=== PATIENT | male | born 1930 | race Caucasian/White ===

== ENCOUNTER 2016-09-29 23:53 | Inpatient (IN) | payer MEDICARE ==
--- NOTE | ~2016-09-29 | CN ---
Consultation Report [facility] [address] [place]. [address] NAME: SCOOBY TRISTAN : 31 STATUS : ADM IN PAT#: [id number] AGE: 85 ADM/REG DATE : 09/30/16 MR#: [id number] REPORT SERV DATE: 10/01/16 DICTATED BY: JOSE MIGUEL CORONADO DATE: 09/30/16 REPORT STATUS : Draft TRANSCRIBED BY: MODL DATE: 09/30/16 CONSULT NOTE DATE OF CONSULTATION: 09/30/2016 REQUESTING PHYSICIAN: Anuj Hanson DO CHIEF COMPLAINT: Shortness of breath in a patient with multiple bilateral pulmonary nodules and bilateral loculated pleural effusions. HISTORY OF PRESENT ILLNESS: Mr. Scooby Tristan is a pleasant 85-year-old white male with a past medical history significant for thyroid cancer, chronic kidney disease, and hypertension, who presents to [facility]'s Emergency Room with complaints of worsening shortness of breath. It should be noted that Mr. Tristan has not been hospitalized recently and is usually in fairly good health given his advanced age and comorbidities. Mr. 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 He has not required supplemental oxygen. He is on nebulized medications. The patient states that he quit smoking over 40 years ago, prior to this time he smoked one pack a day for a period of 15 years. He largely denies symptomatology related to obstructive sleep apnea. He describes his exercise tolerance is becoming progressively worse. He is only able to ambulate around his home before experiencing some degree of shortness of breath. The patient states that approximately two to three days ago, he became more short of breath. He eventually presented to [facility]'s Emergency Room. Upon arrival, he was found to be normotensive and afebrile. He had initial BNP of 1000.7. His creatinine was 2.41. He underwent a chest x-ray which revealed bilateral pleural effusions. He eventually underwent a CT of the chest, which revealed multiple bilateral pulmonary nodules as well as what appeared to be loculated bilateral effusions. For the aforementioned reasons, he has been referred to the Pulmonary Service for further assessment. Currently Mr. Tristan' main pulmonary complaint is shortness of breath. This is worse on exertion and relieved by rest. That being said, he is on room air with appropriate oxygen saturations. He does periodically produce some thick sputum. This is nonpurulent and contains no blood. He denies frequent pneumonias. He denies formal diagnosis of asthma, bronchitis, or emphysema. The patient does have known history of hypertension. He currently denies any murmurs, angina, or palpitations. He has no orthopnea or paroxysmal nocturnal dyspnea. In regard to constitutional symptoms, he currently denies fever, chills, nausea, vomiting, chest pain, abdominal pain, or edema. PAST MEDICAL HISTORY: Consultation Report [address] [place]. [address] NAME: SCOOBY TRISTAN : 31 STATUS : ADM IN [facility]#: [id number] AGE: 85 ADM/REG DATE : 09/30/16 MR#: [id number] REPORT SERV DATE: 10/01/16 DICTATED BY: JOSE MIGUEL CORONADO DATE: 09/30/16 REPORT STATUS : Draft TRANSCRIBED BY: KRYSTEN DATE: 09/30/16 1. Chronic kidney disease. 2. Hypothyroidism. 3. Hypertension. 4. Dyslipidemia. 5. History of thyroid cancer. 6. Achalasia, status post Botox. 7. History of CVA. PAST SURGICAL HISTORY: 1. TURP. 2. Thyroidectomy. FAMILY HISTORY: The patient denies family history of lung disease. There is a family history of uterine cancer and prostate cancer. SOCIAL HISTORY: The patient has a son who is currently at bedside. He denies any known exposures to dust, silica, or asbestos. TOBACCO/ALCOHOL: As previously mentioned, the patient quit smoking approximately 40 years ago, prior to this time he smoked approximately one pack a day for a period of 15 years. He denies any recent alcohol or illicit drug use. MEDICATIONS: Calcitriol 0.25 mcg, finasteride 5 mg, levothyroxine 112 mcg, potassium chloride 20 mEq, simvastatin 10 mg, and tamsulosin 0.4 mg. ALLERGIES: THE PATIENT HAS NO KNOWN DRUG ALLERGIES. REVIEW OF SYSTEMS: Complete review of systems was performed with pertinent positives and negatives contained within the body of the HPI. PHYSICAL EXAMINATION: VITAL SIGNS: Blood pressure is 116/77, heart rate 78, T-max is 98.2, respiratory rate is 17, and SpO2 is 98% on room air. GENERAL: Mr. Scooby Morton is a thin appearing 85-year-old white male who is not currently experiencing any acute distress. SKIN: Skin with appropriate texture and turgor. No rashes, lesions, or ulcers. HEENT: Head: Skull is normocephalic, atraumatic. No masses, lesions, or ulcers. Eyes: Sclerae anicteric. Ears: Hearing grossly intact. Nose: Bilateral nasal patency. Throat: Dentition noted. NECK: Neck is supple. Trachea midline. THORAX/LUNGS: Thorax is symmetric with equal chest rise. Diminished breath sounds in the posterior lung garcia. There are few scattered rhonchi. CARDIOVASCULAR: Regular rate and rhythm. ABDOMEN: Abdomen is soft. Consultation Report [place] [id number] [facility] [place]. [address] NAME: SCOOBY TRISTAN : 31 STATUS : ADM IN PAT#: [id number] AGE: 85 ADM/REG DATE : 09/30/16 MR#: [id number] REPORT SERV DATE: 10/01/16 DICTATED BY: JOSE MIGUEL CORONADO DATE: 09/30/16 REPORT STATUS : Draft TRANSCRIBED BY: MODAlicia DATE: 09/30/16 PERIPHERAL/VASCULAR: No edema. MUSCULOSKELETAL: Full AROM and PROM in all joints. NEUROLOGIC: Cranial nerves 2 through 12 grossly intact. Good muscle bulk and tone bilaterally. PSYCHIATRIC: The patient demonstrates good judgment and insight. ACCESSORY DATA: Reveals white blood cell count of 6300, hemoglobin and hematocrit are 9.3 and 29.3, and platelets are 250. Creatinine is 2.45 and BNP is 100.7. CT of the chest reveals bilateral pulmonary nodules as well as bilateral loculated appearing pleural effusions. IMPRESSION: 1. Multiple bilateral pulmonary nodules. 2. Bilateral loculated pleural effusions. 3. History of thyroid cancer. 4. Possible rheumatoid arthritis. PLAN: 1. At this time, we have discussed potential modalities for obtaining diagnosis. We did discuss a diagnostic and therapeutic thoracentesis as well as bronchoscopy and even CT- guided FNA. The risks, benefits, and alternatives of all 3 were explained at length to both the patient and his son who is currently at bedside. At this time, the patient would like to pursue thoracentesis. I did discuss with him that these appeared to be loculated and the possibility of complications that could ensue. We will move forward with this procedure tomorrow morning. He understands that if this would to be nondiagnostic, he may need to pursue further intervention including bronchoscopy. 2. The patient does have some findings consistent with rheumatoid arthritis. Although unlikely it could be a possible etiology for both his effusions and nodules. We will check a rheumatoid factor moving forward. The aforementioned impression and plan has been discussed with Dr. Mclaughlin as well as Dr. Villafuerte. We thank you for this consult and look forward to participating in the care of Mr. Scooby Tristan. GBS/MODL Jose Miguel Coronado PA-C / [id number] CC: Anuj Hanson DO
--- NOTE | ~2016-09-29 | OP ---
Record Of Operation [facility] [address] [place]. [address] NAME: PAMELA COHEN : 31 STATUS : ADM IN PAT#: [id number] AGE: 85 ADM/REG DATE : 09/30/16 MR#: [id number] REPORT SERV DATE: 10/05/16 DICTATED BY: LIBAN RINALDINAZANIN CARRENOE DATE: 10/05/16 REPORT STATUS : Draft TRANSCRIBED BY: MODL DATE: 10/05/16 DATE OF PROCEDURE: 10/05/2016 BRONCHOSCOPY NAVIGATIONAL AND EBUS NOTE PREOPERATIVE DIAGNOSIS: Multiple lung nodules. POSTOPERATIVE DIAGNOSIS: Possible metastatic thyroid carcinoma. PROCEDURE: Bronchoscopy with airway inspection and anesthesia/navigational bronchoscopy with transbronchial lung biopsies, into the posterior segment of the right lower lobe in micro and macro BAL/transbronchial needle aspirates with sampling of what appeared to be a 12-hour lymph node and a clear 10-hour lymph node. We were unable to find the left lower lobe lesion on radial EBUS and no sampling was performed. CONTRAINDICATIONS: None. CONSENT: The risks, benefits, alternatives, and evaluations were discussed with the patient and son. Possible complications reviewed to include air leak around the lung, bleeding, infection, low oxygen level, and even potentially . The patient agreed to procedure with consent signed and witnessed on the front of the chart. PREOPERATIVE LABS: Platelet count was 248,000, INR is 1.1, PTT was 38.8. SYSTEMS TEST ENGINEER: Nazanin Goncalves M.D. METHOD: The patient was taken to the bronchoscopy suite at [facility] in the usual manner. Anesthesiology was consulted to provide airway management and sedation. This was provided via an endotracheal tube. Once the tube was secured and the patient was sedated, the bronchoscope was advanced through the endotracheal tube without difficulty. Tube sat approximately 3.5 cm proximal to the nathaniel. There was thick white mucus on the left lower lobe and upper lobe, which both removed with suction. There was anatomic narrowing of the proximal airways to the left lower lobe; however, all were patent. There was anatomic variant of a 3-segment left upper lobe. A total of 18 mL of 2% lidocaine solution was used throughout this portion of the procedure to provide airway anesthesia. Once airway inspection had occurred, navigational planning had already been performed. Mapping was then performed endobronchially. Using navigational guidance, the lesion appeared to be in the posterior segment of the right lower lobe. On best airway guidance, no lesion was found on radial EBUS. Using the airway proximity and probing with the radial EBUS, the lesion was found. This was sampled 9 times with transbronchial lung biopsies. Twice during the biopsies, the procedure was put on hold while the radial EBUS was readvanced and appeared to be on the lesion. All biopsies were performed in fluoroscopic guidance. At the conclusion of the biopsies to the right lower lobe, a micro BAL was performed through the working port. I felt that adequate sampling had been performed. On touch prep, no clear malignant cells were found; however, after mary examination, there was a very mature cell seen and need to be reviewed on biopsy. We then performed navigation to the left lower lobe lesion. The [facility] Record Of [facility] [address] [facility] [place]. [address] NAME: PAMELA COHEN : 31 STATUS : ADM IN PAT#: [id number] AGE: 85 ADM/REG DATE : 09/30/16 MR#: [id number] REPORT SERV DATE: 10/05/16 DICTATED BY: NAZANIN GONCALVES IV DATE: 10/05/16 REPORT STATUS : Draft TRANSCRIBED BY: KRYSTEN DATE: 10/05/16 and working port were navigated to the lesion. However, on any airway, both the posterior segment of the lateral segment and both subsegments in the posterior segment of the left lower lobe did not appear to be on the lesion using radial EBUS. It was felt that it was unsafe to attempt biopsies in this region since on several that had potential malignant- appearing radial EBUS findings, there was noted to be close proximity to the pleura. At this time, the convex EBUS scope was advanced down the right mainstem into the right lower lobe bronchus. A soft-tissue mass/node could be observed and was sampled twice for slides and three times for cell block. This demonstrated blood and mature epithelioid cells with no clear lymph node. At this time, the scope was pulled proximally and a 2-cm 10-hour lymph node was noted. This was sampled three times for slide, three for cell block. This demonstrated epithelioid cells, which would be consistent with his previous thyroid cancer in appearance. Final pathology is pending. It was felt that adequate transbronchial needle aspirate samplings were performed in both the 12-hour and 10-hour lymph nodes. Review with the EBUS scope demonstrated no significant level 7- or 4-hour lymph nodes or 11-hour lymph nodes. At this time, it was felt that adequate sampling had been performed. The EBUS scope was then removed and the bronchoscope was readvanced. A macro BAL was performed in the posterior segment of the right lower lobe sent for culture as well as for cytology. Estimated blood loss for the procedure was 10 mL. There was no active bleeding at the conclusion of the procedure. Before fluoroscopy was removed, there was no evidence for pneumothorax looking at the right lung. The patient tolerated the procedure well, was sent to recovery. I will notify the family of the preliminary findings. LAURA/KRYSTEN Nazanin Goncalves IV, M.D. / [id number] CC: Anuj Hanson DO
--- NOTE | ~2016-09-29 | OP ---
Record Of Operation [facility] [address] [place]. [address] NAME: PAMELA COHEN : 31 STATUS : ADM IN PAT#: [id number] AGE: 85 ADM/REG DATE : 09/30/16 MR#: [id number] REPORT SERV DATE: 10/01/16 DICTATED BY: JOSE MIGUEL CORONADO DATE: 10/01/16 REPORT STATUS : Draft TRANSCRIBED BY: MODL DATE: 10/01/16 DATE OF PROCEDURE: 10/01/2016 TIME: 1400. PROCEDURE: Ultrasound-guided right-sided thoracentesis. INDICATION: Moderate right-sided pleural effusion. PROCEDURE TESTER WASTE DISPOSAL LEAKAGE: Patrice Coronado PA-C. CONSENT: Consent was obtained from the patient prior to the procedure. Diagnostic and therapeutic indications for thoracentesis were discussed as well as risks including life- threatening bleeding, pneumothorax, and even the possible necessity of chest tube placement. Benefits and alternatives were explained at length. Prior to the procedure, imaging studies were reviewed with Dr. Villafuerte who agreed with the indication to proceed with thoracentesis. Dr. Villafuerte was present in the room. PROCEDURE SUMMARY: A time out was performed verifying correct patient, procedure, site, and positioning. The patient's right chest was prepped and draped in a sterile manner using chlorhexidine scrub after the appropriate level was percussed and confirmed by ultrasound. U/S images were obtained and placed within the chart. 2% lidocaine with epinephrine was then used to anesthetize the region. A finder needle was then used to aspirate dark red serosanguineous pleural fluid. A 10-blade scalpel was then used to make a small incision. The thoracentesis catheter was then threaded into the pleural space without difficulty. The patient had 400 mL of dark red serosanguineous fluid removed. Repeat imaging suggested lung entrapment as well as some degree of septation and as such no further fluid was aspirated. No immediate complications were noted during the procedure. A post-procedure chest x-ray is pending at the time of this dictation. The fluid will be sent for several studies. ESTIMATED BLOOD LOSS: Minimal. GBS/MODL Jose Miguel Coronado PA-C / [id number] CC: Anuj Hanson DO
--- NOTE | ~2016-09-29 | HP ---
History And Physical [place] [address] [facility] [place]. [address] NAME: PAMELA COHEN : 31 STATUS : ADM IN [facility]#: [id number] AGE: 85 ADM/REG DATE : 09/30/16 MR#: [id number] REPORT SERV DATE: 09/30/16 DICTATED BY: YOAN SUTTON DATE: 09/30/16 REPORT STATUS : Draft TRANSCRIBED BY: MODL DATE: 09/30/16 DATE OF ADMISSION: 09/29/2016 POINT OF ENTRY: [facility] Emergency Department PRIMARY UROLOGIST: Dr. Tapia. CHIEF COMPLAINT: Shortness of breath and dyspnea on exertion. HISTORY OF PRESENT ILLNESS: Mr. Cohen is an 85-year-old gentleman with a history of chronic kidney stage 3, baseline creatinine approximately 1.6 to 1.9, BPH, hypothyroidism, hypertension, hyperlipidemia, as well as remote history of thyroid cancer who presents to the emergency department today with a two-day history of shortness of breath and dyspnea on exertion. The patient states that his symptoms began about two days ago of shortness of breath, primarily dyspnea on exertion, but he denies any associated fevers, night sweats, chills, cough, sputum production, wheezing, chest pain, palpitations, or lower extremity edema. The patient only recently started to develop a cough occasionally productive of clear to whitish colored sputum in the last few hours while being evaluated in the emergency department. He denies any history of lung or cardiac disease. Does have a history of chronic kidney stage 3. Denies any recent troubles with urinary retention. States he has had good appetite as well as a good oral intake recently. Initial evaluation in the emergency department for a chest x-ray concerning for bilateral pleural effusion as well as some evidence of some mild intravascular volume overload. Remainder of workup showed a BNP mildly elevated at 100.7, troponin mildly elevated at 0.09, creatinine is elevated above his baseline of 2.41. The patient was given 20 mg of IV Lasix and admitted to the Hospitalist Service. REVIEW OF SYSTEMS: Comprehensive review of systems, otherwise negative unless listed in history of present illness. PREVIOUS MEDICAL HISTORY: 1. Chronic kidney stage 3. Baseline creatinine 1.6 to 1.9. 2. BPH with history of urinary retention. 3. Postsurgical hypothyroidism. 4. Thyroid cancer, status post thyroidectomy. 5. History of CVA. 6. Achalasia, status post Botox and PEG tube insertion, now resolved. 7. Hypertension. 8. Hyperlipidemia. SURGICAL HISTORY: History And Physical [address] [address] NAME: PAMELA COHEN : 31 STATUS : ADM IN PAT#: [id number] AGE: 85 ADM/REG DATE : 09/30/16 MR#: [id number] REPORT SERV DATE: 09/30/16 DICTATED BY: YOAN SUTTON DATE: 09/30/16 REPORT STATUS : Draft TRANSCRIBED BY: KRYSTEN DATE: 09/30/16 1. TURP. 2. Thyroidectomy. ALLERGIES: NO KNOWN DRUG ALLERGIES. HOME MEDICATIONS: Pending at the time of dictation. SOCIAL HISTORY: Denies any tobacco, alcohol, or illicits. FAMILY MEDICAL HISTORY: Mother with urine cancer and diabetes. Father's history is unknown. Siblings with diabetes, prostate cancer, and uterine cancer. LABS AND IMAGIN. White count is 8.2, hemoglobin is 9.2, hematocrit is 29.3, and platelet count 242. 2. Sodium is 141, potassium 4.4, chloride 104, carbon dioxide 33, BUN 31, creatinine 2.41, glucose was 89, calcium is 9.6. Protein is 7.8, albumin is 2.9, bilirubin is 0.7, ALT is 9, AST 14, alkaline phosphatase is 53. 3. BNP is elevated at 100.7. Troponin 0.09. 4. Occult stool is negative. EKG per my review shows normal sinus rhythm with occasional PACs and LVH type changes. No evidence of any acute ischemia or infarction. Chest x-ray per my review shows bilateral moderate-sized pleural effusion as well as some mild intravascular volume overload and mild cardiomegaly. Also, appears to be right lower lobe infiltrate concerning for compressive atelectasis versus consolidation. PHYSICAL EXAMINATION: ABDOMEN: Soft, nontender, nondistended. Good bowel sounds. No rebound, guarding, or rigidity. EXTREMITIES: Warm and perfused. No cyanosis, clubbing, or edema. SKIN: Warm and dry. PSYCH: Affect is appropriate. NEURO: Alert and oriented x3. Cranial nerves II through XII grossly intact. Speech is normal. Gait not assessed. ASSESSMENT AND PLAN: Mr. Cohen is an 85-year-old gentleman, who presents with a few day history of shortness of breath and dyspnea on exertion. Now, starting to have cough with sputum production and found to have evidence of bilateral pleural effusions as well as a possible right lower lobe pneumonia. PROBLEM LIST: 1. Shortness of breath and dyspnea on exertion. 2. Bilateral pleural effusions. 3. Acute kidney injury on chronic kidney disease stage 3. 4. Right lower lobe infiltrate concerning for pneumonia. 5. Elevated troponin level. History And Physical [address] [address] NAME: PAMELA COHEN : 31 STATUS : ADM IN PAT#: [id number] AGE: 85 ADM/REG DATE : 09/30/16 MR#: [id number] REPORT SERV DATE: 09/30/16 DICTATED BY: YOAN SUTTON DATE: 09/30/16 REPORT STATUS : Draft TRANSCRIBED BY: KRYSTEN DATE: 09/30/16 PLAN: 1. Shortness of breath, likely secondary to the patient's pleural effusions as well as concern for right lower lobe infiltrate concerning for pneumonia. We will attempt to diurese gently as well as treat with antibiotics and observe for improvement. BNP is only mildly elevated. We will check echocardiogram given concern for possible chronic diastolic congestive heart failure, given history of hypertension, LVH changes on EKG as well as chronic kidney disease stage 3. 2. Bilateral pleural effusions. Unclear etiology at this time. We will attempt gentle diuresis checking echocardiogram there also with a right lower lobe infiltrate concerning for possible pneumonia which we will treat. 3. Acute kidney injury and heart disease stage 3. Unclear etiology at this time. However, given his bilateral pleural effusions, there is concern for possible cardiorenal syndrome. We will gently diurese, observe for improvement. In the meantime, checking urinalysis urine lytes as well as renal ultrasound to assist. 4. Elevated troponin level. The patient denies any chest pain. EKG is nonischemic. Continue to trend these cardiac enzymes likely secondary to his known renal disease. 5. Right lower lobe infiltrate. This is concerning for pneumonia versus possible compressive atelectasis. We will empirically treat with antibiotics given the patient now has a cough as well as sputum production checking CT scan of the chest. 6. DVT prophylaxis. Heparin subcu. CODE STATUS: The patient wished to be full code. JCB/MODL Yoan Sutton MD / [id number] CC: MD Anjel Jarquin M.D.
--- NOTE | ~2016-09-29 | DS ---
Discharge Summary [place] [id number] [place]. [address] NAME: PAMELA COHEN : 31 STATUS : ADM IN [facility]#: [id number] AGE: 85 ADM/REG DATE : 09/30/16 MR#: [id number] REPORT SERV DATE: 10/06/16 DICTATED BY: GOMEZ MARTELL DATE: 10/06/16 REPORT STATUS : Draft TRANSCRIBED BY: MODL DATE: 10/06/16 ADMISSION DATE: 09/30/2016 DISCHARGE DATE: 10/06/2016 ADDENDUM: DISCHARGE DIAGNOSES: Probable metastatic thyroid cancer, bilateral loculated effusion, urinary tract infection, finished treatment, encephalopathy improved, atrial fibrillation diltiazem CD, likely aspirin and Plavix as an outpatient, benign prostatic hyperplasia, acute kidney injury, clinical chronic obstructive pulmonary disease, hypothyroidism. I am going to add aspirin and Plavix discharge JUL. DICTATED BY: DO TATUM Hernandez/KRYSTEN Gomez Martell DO / [id number] CC: Gomez Martell DO
--- NOTE | ~2016-09-29 | DS ---
Discharge Summary [facility] [address] [place]. [address] NAME: PAMELA COHEN : 32 STATUS : ADM IN PAT#: [id number] AGE: 85 ADM/REG DATE : 09/30/16 MR#: [id number] REPORT SERV DATE: 10/07/16 DICTATED BY: GOMZE MARTELL DATE: 10/06/16 REPORT STATUS : Draft TRANSCRIBED BY: MODL DATE: 10/06/16 ADMISSION DATE: 09/30/2016 DISCHARGE DATE: 10/06/2016 HOSPITAL COURSE: This is an 85-year-old unfortunate male. 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 The patient came in with unfortunate shortness of breath, had mild ANDREA and CKD. We did a CT of his chest, unfortunately had showed bilateral pulmonary nodules highly suspicious for metastasis, 2.8 cm left lower lobe, right hilar 2.2 cm, loculation, pleural effusion, has cytology with bloody exudate. With cytology was negative, as a result we did a navigational bronchoscopy at that time to have possible metastatic thyroid carcinoma. Dr. San was consulted, for which Dr. San had stated with [facility] that suppression of Synthroid may slow his tumor growth, he is unlikely to tolerate what would likely control the disease, the best which is an oral tyrosine kinase inhibitor. As a result, we would like to see the patient in the office in two weeks. If performance score is better, might consider adding , but would suspect he will need hospice care if no stronger. The patient is DNR/DNI at this time. The patient will be going to a facility called [facility] today. Follow up with his Oncolgy in two weeks. Follow up with PCP in 2 weeks. Reduce his Synthroid to 75 from 112, since spirometry every 120 times an hour, will need to be on oxygen as an outpatient, do walking oxygen test as an outpatient when going from facility to home. At that time, follow up with Nephrology in four to eight weeks as well. DISCHARGE MEDICATIONS: Aspirin 81 p.o. daily, calcitriol 0.25 mcg p.o. daily, calcium carbonate, diltiazem CD 120 p.o. daily, finasteride 5 p.o. daily as well as having simvastatin 10 p.o. daily, Flomax 0.4 p.o. daily as well as capsule p.o. b.i.d. will not be given, KCl 20 mEq p.o. daily, Synthroid 75 mcg p.o. daily, Spiriva, Dulera, albuterol p.r.n. CONSULTANTS: [facility], Pulmonary. PROCEDURES: Going to be thoracentesis as well as bronchoscopy, EBUS. DICTATED BY: Gomez Martell DO WST/KRYSTEN Gomez Martell DO Discharge Summary [address] [address] NAME: PAMELA COHEN : 32 STATUS : ADM IN [facility]#: [id number] AGE: 85 ADM/REG DATE : 09/30/16 MR#: [id number] REPORT SERV DATE: 10/07/16 DICTATED BY: GOMEZ MARTELL DATE: 10/06/16 REPORT STATUS : Draft TRANSCRIBED BY: MODL DATE: 10/06/16 / [id number] CC: Gomez Martell DO
--- NOTE | ~2016-09-29 | PUL ---
[facility] [address] [facility]. [address] NAME: PAMELA COHEN : 32 STATUS : DIS IN PAT#: [id number] AGE: 85 ADM/REG DATE : 09/30/16 MR#: [id number] REPORT SERV DATE: 10/08/16 DICTATED BY: NAZANIN GONCALVES IV DATE: 10/07/16 REPORT STATUS : Draft TRANSCRIBED BY: MODL DATE: 10/07/16 PULMONARY FUNCTION TEST OVERNIGHT OXIMETRY FINDINGS: Study is performed on room air. Six hours and 19 minutes of data available for review. The mean oxygen saturation was 92.1%. Lowest scored saturation was 81%. The patient spent 21 minutes with oxygen saturations less than 88%. There were periods of oxygen saturation variation of sawtooth pattern, though rarely did these meet 4% variance and rarely were they clustered. There was a period of loss of data collection about midway through the study. The most consistent period of hypoxemia occurred just at the end of the study with adequate saturations throughout the majority of the study. IMPRESSION: Significant nocturnal hypoxemia on room air as described above. The patient would meet criteria for supplemental oxygen, which should be provided at 2 L/minute. There is no clear pattern consistent with obstructive sleep apnea. LAURA/KRYSTNE Nazanin Goncalves IV, M.D. / [id number] CC: Anuj Hanson DO
--- NOTE | ~2016-09-29 | DS ---
Discharge Summary [facility] [address] [place]. [address] NAME: PAMELA COHEN : 32 STATUS : DIS IN PAT#: [id number] AGE: 85 ADM/REG DATE : 09/30/16 MR#: [id number] REPORT SERV DATE: 10/08/16 DICTATED BY: ANTHONY FRIEDMAN DATE: 10/07/16 REPORT STATUS : Draft TRANSCRIBED BY: MODL DATE: 10/07/16 ADMISSION DATE: 09/30/2016 DISCHARGE DATE: 10/07/2016 UROLOGIST: Anjel Tapia M.D. CONSULTING PHYSICIANS: Dr. Goncalves and Dr. Mclaughlin. Dr. Grayson Barnett for Oncology. FINAL DIAGNOSES: 1. Metastatic papillary thyroid cancer, stage IV, status post right lower lobe pneumonia. 2. Loculated pleural effusion. 3. Chronic obstructive pulmonary disease. 4. Acute kidney injury on chronic kidney disease 3. 5. Hypertension. 6. History of cerebrovascular accident. 7. Atrial fibrillation. 8. History of achalasia with PEG. 9. Hypophosphatemia. 10.Benign prostatic hyperplasia with urinary retention. 11.Hypothyroidism, status post thyroidectomy for cancer. 12.Status post encephalopathy. HOSPITAL COURSE: Please refer to the H and P done by Dr. Nieto dated on 09/30/2016 and the interim discharge summary done by Dr. Anuj Goldman on 10/06/2016 and 10/07/2016. Since I took care of this patient, the patient is formally diagnosed with a metastatic papillary cancer and he was told about this. He was given the option of going to hospice or going to be taking the new medication for it, but with his condition, he probably would not be able to tolerate that. The patient was initially thought that he would go to a SNF facility to get stronger so that they would be able to think about getting that new medications for the cancer, but they changed their mind, they would rather go home. PT recommended some rolling walker, home health, home PT, and bedside commode. The patient got clearance from both Oncology and Pulmonary to go home. He will then be followed up by his PCP, Blake Hughes, and then follow up with Dr. Grayson Barnett in two weeks and Dr. Mclaughlin in two to three weeks. The patient will be on the following medications. Aspirin 81 mg a day, Rocaltrol 0.25 mcg a day, Caltrate 1000 mg twice a day, diltiazem CD 180 mg at bedtime, Proscar 5 mg at bedtime, Synthroid down to 75 mcg a day, potassium 20 mEq a day, Zocor 10 mg at bedtime, Flomax 0.4 mg a day, albuterol nebules four times a day as needed. This has been explained to the patient in front of the son. TIME SPENT: 35 minutes. DICTATED BY: Anthony Friedman M.D. Discharge Summary [address] [address] NAME: PAMELA COHEN : 32 STATUS : DIS IN PAT#: [id number] AGE: 85 ADM/REG DATE : 09/30/16 MR#: [id number] REPORT SERV DATE: 10/08/16 DICTATED BY: ANTHONY FRIEDMAN DATE: 10/07/16 REPORT STATUS : Draft TRANSCRIBED BY: KRYSTEN DATE: 10/07/16 MICHAEL/KRYSTEN Anthony Friedman M.D. / [id number] CC: DO Blake Hernandez MD
[2016-09-29 22:24] LABS: BASOPHILS 0.1 %; BASOPHILS ABSOLUTE 0.01 10/3/uL (0.0-0.16); EOSINOPHILS 0.9 %; EOSINOPHILS ABSOLUTE 0.07 10/3/uL (0.0-0.53); ER CBC TAT 0 Hrs 09 Mins; HEMOGLOBIN 9.2 g/dL (13.6-17.8); IMMATURE GRANULOCYTES 0.1 %; IMMATURE GRANULOCYTES ABSOLUTE 0.01 10/3/uL (0.0-0.11); LYMPHOCYTES 9.5 %; LYMPHOCYTES ABSOLUTE 0.78 10/3/uL (0.67-4.30); MEAN CORPUS HGB CONC 31.4 g/dL (32.0-36.0); MEAN CORPUSCULAR HEMOGLOB 26.7 pg (26.0-34.0); MEAN PLATELET VOLUME 9.1 fL (9.2-13.0); MONOCYTES ABSOLUTE 0.41 10/3/uL (0.21-1.20); NEUTROPHILS 84.4 %; NEUTROPHILS ABSOLUTE 6.95 10/3/uL (2.02-8.40); PLATELET COUNT 242 10/3/uL (150-400); RBC DISTRIBUTION WIDTH 15.7 % (12.0-16.0); RED CELL COUNT 3.45 10/6/uL (4.7-6.1); WHITE BLOOD CELLS 8.2 10/3/uL (4.5-10.5)
[2016-09-29 22:25] LABS: HEMATOCRIT 29.3 % (40.0-51.0); MANUAL DIFF NO %; MEAN CORPUSCULAR VOLUME 84.9 fL (80-100)
[2016-09-29 22:42] LABS: A/G RATIO 0.6 (0.7-1.9); ALBUMIN 2.9 G/DL (3.5-5.0); ALKALINE PHOSPHATASE 53 U/L (45-117); BUN (BLOOD UREA NITROGEN) 31 MG/DL (6-23); CALCIUM, SERUM 9.6 MG/DL (8.5-10.4); CHLORIDE, SERUM 104 MMOL/L (96-112); CO2 (CARBON DIOXIDE) 33 MMOL/L (24-34); GFR AFRICAN AMERICAN 28 ML/MIN (>=60); GFR NON AFRICAN AMERICAN 24 ML/MIN (>=60); GLOBULIN 4.9 G/DL (2.5-4.1); GLUCOSE, SERUM 89 MG/DL (60-99); POTASSIUM, SERUM 4.4 MMOL/L (3.5-5.3); SGOT(AST) 14 U/L (5-40); SGPT(ALT) 9 U/L (5-65); SODIUM, SERUM 141 MMOL/L (135-148); TOTAL BILIRUBIN 0.7 MG/DL (0-1.2); TOTAL PROTEIN 7.8 G/DL (6.0-8.5)
[2016-09-29 22:43] LABS: CREATININE 2.41 MG/DL (0.70-1.30)
[~2016-09-29 23:53] MED LIST: BACDS PO; CALCITRIOL0.25 MCG OR; CALCIUM PO; CARDURA8 MG PO; CHLORTHALID25 MG OR; DITRO5 PO; FLOMAX4 PO; KLOR-CON 1010 MEQ PO; LEVOTHROID137 MCG PO; LEVOTHYROXIN100 MCG PO; LEVOTHYROXIN125 MCG PO; MAG OXIDE250 MG PO; NORV10 PO; OS500+D PO; PROSCAR5 PO; PYR200 PO; ROCALTROL0.25 MCG OR; VIB100 PO; ZOCOR10 PO
[2016-09-30 00:27] LABS: TROPONIN I 0.09 NG/ML (<0.05)
[2016-09-30] MEDS ORDERED: ZOCOR10 PO (00:42)
[2016-09-30] MEDS ORDERED: KLOR-CON M2020 MEQ PO (00:42)
[2016-09-30] MEDS ORDERED: OS500+D PO (00:43)
[2016-09-30] MEDS ORDERED: FLOMAX4 PO (00:43)
[2016-09-30] MEDS ORDERED: ROCALTROL0.25 MCG PO (00:43)
[2016-09-30] MEDS ORDERED: SYN112 PO (00:43)
[2016-09-30] MEDS ORDERED: PROSCAR5 PO (00:43)
[2016-09-30 05:41] LABS: BASOPHILS 0.2 %; BASOPHILS ABSOLUTE 0.01 10/3/uL (0.0-0.16); EOSINOPHILS 1.6 %; HEMATOCRIT 29.3 % (40.0-51.0); HEMOGLOBIN 9.3 g/dL (13.6-17.8); IMMATURE GRANULOCYTES 0.2 %; IMMATURE GRANULOCYTES ABSOLUTE 0.01 10/3/uL (0.0-0.11); LYMPHOCYTES 14.6 %; LYMPHOCYTES ABSOLUTE 0.92 10/3/uL (0.67-4.30); MEAN CORPUS HGB CONC 31.7 g/dL (32.0-36.0); MEAN CORPUSCULAR VOLUME 84.9 fL (80-100); MEAN PLATELET VOLUME 9.5 fL (9.2-13.0); MONOCYTES 7.2 %; MONOCYTES ABSOLUTE 0.45 10/3/uL (0.21-1.20); NEUTROPHILS 76.2 %; NEUTROPHILS ABSOLUTE 4.79 10/3/uL (2.02-8.40); PLATELET COUNT 250 10/3/uL (150-400); RBC DISTRIBUTION WIDTH 15.6 % (12.0-16.0); RED CELL COUNT 3.45 10/6/uL (4.7-6.1); WHITE BLOOD CELLS 6.3 10/3/uL (4.5-10.5)
[2016-09-30 05:42] LABS: MANUAL DIFF NO %
[2016-09-30 06:10] LABS: ALBUMIN 2.8 G/DL (3.5-5.0); BUN (BLOOD UREA NITROGEN) 33 MG/DL (6-23); CALCIUM, SERUM 9.9 MG/DL (8.5-10.4); CHLORIDE, SERUM 101 MMOL/L (96-112); CK-MB 1.3 NG/ML; CO2 (CARBON DIOXIDE) 30 MMOL/L (24-34); CPK 73 U/L (0-200); CREATININE 2.45 MG/DL (0.70-1.30); FREE T4 1.21 NG/DL (0.76-1.46); GFR AFRICAN AMERICAN 27 ML/MIN (>=60); GFR NON AFRICAN AMERICAN 23 ML/MIN (>=60); GLUCOSE, SERUM 85 MG/DL (60-99); PHOSPHORUS, SERUM 2.5 MG/DL (2.5-4.5); POTASSIUM, SERUM 3.8 MMOL/L (3.5-5.3); SODIUM, SERUM 139 MMOL/L (135-148)
[2016-09-30 06:56] LABS: ASCORBIC ACID (UR NOT ORDER) NEG (NEG); BILIRUBIN, URINE NEGATIVE (NEG); KETONE, URINE NEGATIVE (NEG); LEUKOCYTE ESTERASE(NOT OR LARGE (NEG); WBC (NOT ORDERED) (RFLEX) 79 (0-5)
[2016-09-30 07:22] LABS: CREATININE, URINE 40.4 MG/DL
[2016-09-30 11:25] LABS: CPK 84 U/L (0-200)
[2016-09-30 11:26] LABS: CK-MB 1.3 NG/ML; TROPONIN I 0.09 NG/ML (<0.05)
[2016-09-30 17:11] LABS: RHEUMATOID FACTOR QUANT 19 IU/ML (0-15)
[2016-09-30 18:10] LABS: TOTAL PROTEIN 7.5 G/DL (6.0-8.5)
[2016-10-01 06:16] LABS: BASOPHILS 0.2 %; BASOPHILS ABSOLUTE 0.01 10/3/uL (0.0-0.16); EOSINOPHILS 1.6 %; HEMATOCRIT 27.1 % (40.0-51.0); HEMOGLOBIN 8.7 g/dL (13.6-17.8); IMMATURE GRANULOCYTES 0.2 %; IMMATURE GRANULOCYTES ABSOLUTE 0.01 10/3/uL (0.0-0.11); LYMPHOCYTES 13.2 %; LYMPHOCYTES ABSOLUTE 0.82 10/3/uL (0.67-4.30); MEAN CORPUS HGB CONC 32.1 g/dL (32.0-36.0); MEAN CORPUSCULAR HEMOGLOB 26.8 pg (26.0-34.0); MEAN CORPUSCULAR VOLUME 83.4 fL (80-100); MEAN PLATELET VOLUME 9.4 fL (9.2-13.0); MONOCYTES 4.3 %; MONOCYTES ABSOLUTE 0.27 10/3/uL (0.21-1.20); NEUTROPHILS 80.5 %; NEUTROPHILS ABSOLUTE 5.02 10/3/uL (2.02-8.40); PLATELET COUNT 244 10/3/uL (150-400); RBC DISTRIBUTION WIDTH 15.6 % (12.0-16.0); RED CELL COUNT 3.25 10/6/uL (4.7-6.1); WHITE BLOOD CELLS 6.2 10/3/uL (4.5-10.5)
[2016-10-01 06:18] LABS: MANUAL DIFF NO %
[2016-10-01 06:22] LABS: INTERNATIONAL NORMAL RATI 1.1 UNITS (-); PROTIME (NOT ORD) 14.5 SEC (12.0-14.5)
[2016-10-01 06:23] LABS: PARTIAL THROMBO TIME 39.3 SEC (22.5-37.2)
[2016-10-01 06:42] LABS: CALCIUM, SERUM 10.1 MG/DL (8.5-10.4); CHLORIDE, SERUM 100 MMOL/L (96-112); CO2 (CARBON DIOXIDE) 33 MMOL/L (24-34); CREATININE 2.85 MG/DL (0.70-1.30); GFR AFRICAN AMERICAN 22 ML/MIN (>=60); GFR NON AFRICAN AMERICAN 19 ML/MIN (>=60); GLUCOSE, SERUM 94 MG/DL (60-99); PHOSPHORUS, SERUM 2.9 MG/DL (2.5-4.5); POTASSIUM, SERUM 3.7 MMOL/L (3.5-5.3); SODIUM, SERUM 140 MMOL/L (135-148)
[2016-10-01 06:43] LABS: BUN (BLOOD UREA NITROGEN) 44 MG/DL (6-23)
[2016-10-01 17:23] LABS: GLUCOSE BODY FL (NOT ORD) 6 MG/DL; PROTEIN BODY FLUID 4.9 G/DL
[2016-10-01 17:24] LABS: LDH BODY FLUID (NOT ORD) 6 U/L
[2016-10-01 17:51] LABS: BF TOTAL CELL CT (NOT ORD 16832 /MM3; BODY FLUID RBC (NOT ORD) 217123 /MM3
[2016-10-01 18:19] LABS: BD FL LYMPH (NOT ORD) 35 %; BD FL SOURCE (NOT ORD) PLEURAL; BF BASO (NOT OF) 0 %; BF LARGE MONONUCLEAR 33 %; BODY FLUID EOS (NOT ORD) 0 %; BODY FLUID SEG (NOT ORD) 32 %
[2016-10-02 07:36] LABS: BASOPHILS 0.2 %; BASOPHILS ABSOLUTE 0.01 10/3/uL (0.0-0.16); EOSINOPHILS 3.4 %; EOSINOPHILS ABSOLUTE 0.18 10/3/uL (0.0-0.53); HEMOGLOBIN 8.5 g/dL (13.6-17.8); IMMATURE GRANULOCYTES 0.2 %; IMMATURE GRANULOCYTES ABSOLUTE 0.01 10/3/uL (0.0-0.11); LYMPHOCYTES 12.3 %; LYMPHOCYTES ABSOLUTE 0.64 10/3/uL (0.67-4.30); MEAN CORPUS HGB CONC 32.7 g/dL (32.0-36.0); MEAN CORPUSCULAR HEMOGLOB 27.4 pg (26.0-34.0); MEAN CORPUSCULAR VOLUME 83.9 fL (80-100); MEAN PLATELET VOLUME 9.7 fL (9.2-13.0); MONOCYTES 6.3 %; MONOCYTES ABSOLUTE 0.33 10/3/uL (0.21-1.20); NEUTROPHILS 77.6 %; NEUTROPHILS ABSOLUTE 4.05 10/3/uL (2.02-8.40); PLATELET COUNT 248 10/3/uL (150-400); RBC DISTRIBUTION WIDTH 15.6 % (12.0-16.0); WHITE BLOOD CELLS 5.2 10/3/uL (4.5-10.5)
[2016-10-02 07:39] LABS: MANUAL DIFF NO %
[2016-10-02 07:50] LABS: BUN (BLOOD UREA NITROGEN) 43 MG/DL (6-23); CHLORIDE, SERUM 102 MMOL/L (96-112); CO2 (CARBON DIOXIDE) 32 MMOL/L (24-34); GFR AFRICAN AMERICAN 25 ML/MIN (>=60); GFR NON AFRICAN AMERICAN 22 ML/MIN (>=60); GLUCOSE, SERUM 74 MG/DL (60-99); POTASSIUM, SERUM 3.8 MMOL/L (3.5-5.3); SODIUM, SERUM 142 MMOL/L (135-148)
[2016-10-03 07:27] LABS: BASOPHILS 0.3 %; BASOPHILS ABSOLUTE 0.01 10/3/uL (0.0-0.16); EOSINOPHILS 2.3 %; EOSINOPHILS ABSOLUTE 0.09 10/3/uL (0.0-0.53); HEMATOCRIT 25.1 % (40.0-51.0); HEMOGLOBIN 8.1 g/dL (13.6-17.8); LYMPHOCYTES 14.5 %; LYMPHOCYTES ABSOLUTE 0.56 10/3/uL (0.67-4.30); MEAN CORPUS HGB CONC 32.3 g/dL (32.0-36.0); MEAN CORPUSCULAR HEMOGLOB 26.8 pg (26.0-34.0); MEAN CORPUSCULAR VOLUME 83.1 fL (80-100); MEAN PLATELET VOLUME 9.4 fL (9.2-13.0); MONOCYTES 7.8 %; NEUTROPHILS 75.1 %; NEUTROPHILS ABSOLUTE 2.91 10/3/uL (2.02-8.40); PLATELET COUNT 233 10/3/uL (150-400); RBC DISTRIBUTION WIDTH 15.5 % (12.0-16.0); RED CELL COUNT 3.02 10/6/uL (4.7-6.1); WHITE BLOOD CELLS 3.9 10/3/uL (4.5-10.5)
[2016-10-03 07:28] LABS: MANUAL DIFF NO %
[2016-10-03 07:39] LABS: BUN (BLOOD UREA NITROGEN) 35 MG/DL (6-23); CALCIUM, SERUM 9.9 MG/DL (8.5-10.4); CHLORIDE, SERUM 104 MMOL/L (96-112); CO2 (CARBON DIOXIDE) 34 MMOL/L (24-34); CREATININE 2.19 MG/DL (0.70-1.30); GFR AFRICAN AMERICAN 31 ML/MIN (>=60); GFR NON AFRICAN AMERICAN 27 ML/MIN (>=60); GLUCOSE, SERUM 77 MG/DL (60-99); PHOSPHORUS, SERUM 3.1 MG/DL (2.5-4.5); POTASSIUM, SERUM 3.7 MMOL/L (3.5-5.3); SODIUM, SERUM 143 MMOL/L (135-148)
[2016-10-04 05:03] LABS: CHLORIDE, SERUM 104 MMOL/L (96-112); CO2 (CARBON DIOXIDE) 31 MMOL/L (24-34); CREATININE 2.09 MG/DL (0.70-1.30); GFR AFRICAN AMERICAN 33 ML/MIN (>=60); GFR NON AFRICAN AMERICAN 28 ML/MIN (>=60); PHOSPHORUS, SERUM 2.5 MG/DL (2.5-4.5); POTASSIUM, SERUM 3.8 MMOL/L (3.5-5.3); SODIUM, SERUM 142 MMOL/L (135-148)
[2016-10-04 05:05] LABS: BASOPHILS 0.3 %; BASOPHILS ABSOLUTE 0.01 10/3/uL (0.0-0.16); BUN (BLOOD UREA NITROGEN) 30 MG/DL (6-23); EOSINOPHILS 2.8 %; EOSINOPHILS ABSOLUTE 0.11 10/3/uL (0.0-0.53); GLUCOSE, SERUM 99 MG/DL (60-99); HEMOGLOBIN 8.2 g/dL (13.6-17.8); IMMATURE GRANULOCYTES 0.3 %; IMMATURE GRANULOCYTES ABSOLUTE 0.01 10/3/uL (0.0-0.11); LYMPHOCYTES 17.4 %; LYMPHOCYTES ABSOLUTE 0.69 10/3/uL (0.67-4.30); MEAN CORPUS HGB CONC 31.5 g/dL (32.0-36.0); MEAN CORPUSCULAR HEMOGLOB 26.5 pg (26.0-34.0); MEAN CORPUSCULAR VOLUME 83.9 fL (80-100); MEAN PLATELET VOLUME 9.4 fL (9.2-13.0); MONOCYTES 6.8 %; MONOCYTES ABSOLUTE 0.27 10/3/uL (0.21-1.20); NEUTROPHILS 72.4 %; NEUTROPHILS ABSOLUTE 2.87 10/3/uL (2.02-8.40); PLATELET COUNT 257 10/3/uL (150-400); RBC DISTRIBUTION WIDTH 15.4 % (12.0-16.0)
[2016-10-04 05:06] LABS: MANUAL DIFF NO %
[2016-10-05 07:40] LABS: BASOPHILS 0.3 %; BASOPHILS ABSOLUTE 0.01 10/3/uL (0.0-0.16); EOSINOPHILS 4.2 %; EOSINOPHILS ABSOLUTE 0.16 10/3/uL (0.0-0.53); HEMATOCRIT 26.5 % (40.0-51.0); HEMOGLOBIN 8.4 g/dL (13.6-17.8); IMMATURE GRANULOCYTES 0.3 %; IMMATURE GRANULOCYTES ABSOLUTE 0.01 10/3/uL (0.0-0.11); LYMPHOCYTES 17.2 %; LYMPHOCYTES ABSOLUTE 0.66 10/3/uL (0.67-4.30); MANUAL DIFF NO %; MEAN CORPUS HGB CONC 31.7 g/dL (32.0-36.0); MEAN CORPUSCULAR HEMOGLOB 26.7 pg (26.0-34.0); MEAN CORPUSCULAR VOLUME 84.1 fL (80-100); MEAN PLATELET VOLUME 8.9 fL (9.2-13.0); MONOCYTES ABSOLUTE 0.27 10/3/uL (0.21-1.20); NEUTROPHILS ABSOLUTE 2.72 10/3/uL (2.02-8.40); PLATELET COUNT 248 10/3/uL (150-400); RBC DISTRIBUTION WIDTH 15.3 % (12.0-16.0); RED CELL COUNT 3.15 10/6/uL (4.7-6.1); WHITE BLOOD CELLS 3.8 10/3/uL (4.5-10.5)
[2016-10-05 07:47] LABS: INTERNATIONAL NORMAL RATI 1.1 UNITS (-); PARTIAL THROMBO TIME 38.8 SEC (22.5-37.2); PROTIME (NOT ORD) 14.4 SEC (12.0-14.5)
[2016-10-05 07:53] LABS: CALCIUM, SERUM 9.6 MG/DL (8.5-10.4); CHLORIDE, SERUM 109 MMOL/L (96-112); CO2 (CARBON DIOXIDE) 32 MMOL/L (24-34); CREATININE 1.93 MG/DL (0.70-1.30); GFR AFRICAN AMERICAN 36 ML/MIN (>=60); GFR NON AFRICAN AMERICAN 31 ML/MIN (>=60); PHOSPHORUS, SERUM 2.1 MG/DL (2.5-4.5); POTASSIUM, SERUM 3.7 MMOL/L (3.5-5.3); SODIUM, SERUM 138 MMOL/L (135-148)
[2016-10-05 07:54] LABS: BUN (BLOOD UREA NITROGEN) 26 MG/DL (6-23); GLUCOSE, SERUM 77 MG/DL (60-99)
[2016-10-06 07:09] LABS: BASOPHILS 0.2 %; BASOPHILS ABSOLUTE 0.01 10/3/uL (0.0-0.16); EOSINOPHILS 2.1 %; EOSINOPHILS ABSOLUTE 0.12 10/3/uL (0.0-0.53); HEMOGLOBIN 9.3 g/dL (13.6-17.8); IMMATURE GRANULOCYTES 0.2 %; IMMATURE GRANULOCYTES ABSOLUTE 0.01 10/3/uL (0.0-0.11); LYMPHOCYTES 12.9 %; LYMPHOCYTES ABSOLUTE 0.73 10/3/uL (0.67-4.30); MEAN CORPUS HGB CONC 31.3 g/dL (32.0-36.0); MEAN CORPUSCULAR HEMOGLOB 26.8 pg (26.0-34.0); MEAN CORPUSCULAR VOLUME 85.6 fL (80-100); MEAN PLATELET VOLUME 9.2 fL (9.2-13.0); MONOCYTES 5.8 %; MONOCYTES ABSOLUTE 0.33 10/3/uL (0.21-1.20); NEUTROPHILS 78.8 %; NEUTROPHILS ABSOLUTE 4.47 10/3/uL (2.02-8.40); PLATELET COUNT 286 10/3/uL (150-400); RBC DISTRIBUTION WIDTH 15.4 % (12.0-16.0); RED CELL COUNT 3.47 10/6/uL (4.7-6.1)
[2016-10-06 07:15] LABS: BUN (BLOOD UREA NITROGEN) 23 MG/DL (6-23); CHLORIDE, SERUM 103 MMOL/L (96-112); CO2 (CARBON DIOXIDE) 34 MMOL/L (24-34); CREATININE 2.33 MG/DL (0.70-1.30); GFR AFRICAN AMERICAN 29 ML/MIN (>=60); GFR NON AFRICAN AMERICAN 25 ML/MIN (>=60); POTASSIUM, SERUM 3.8 MMOL/L (3.5-5.3); SODIUM, SERUM 142 MMOL/L (135-148)
[2016-10-06 07:16] LABS: GLUCOSE, SERUM 112 MG/DL (60-99); PHOSPHORUS, SERUM 2.9 MG/DL (2.5-4.5)
[2016-10-06 07:18] LABS: WHITE BLOOD CELLS 5.7 10/3/uL (4.5-10.5)
[2016-10-06 07:19] LABS: HEMATOCRIT 29.7 % (40.0-51.0); MANUAL DIFF NO %
[2016-10-07 04:36] LABS: BASOPHILS 0.4 %; BASOPHILS ABSOLUTE 0.02 10/3/uL (0.0-0.16); EOSINOPHILS 1.8 %; EOSINOPHILS ABSOLUTE 0.09 10/3/uL (0.0-0.53); HEMOGLOBIN 8.2 g/dL (13.6-17.8); IMMATURE GRANULOCYTES 0.2 %; IMMATURE GRANULOCYTES ABSOLUTE 0.01 10/3/uL (0.0-0.11); LYMPHOCYTES 11.9 %; LYMPHOCYTES ABSOLUTE 0.58 10/3/uL (0.67-4.30); MEAN CORPUS HGB CONC 31.8 g/dL (32.0-36.0); MEAN CORPUSCULAR HEMOGLOB 27.2 pg (26.0-34.0); MEAN CORPUSCULAR VOLUME 85.7 fL (80-100); MONOCYTES 6.8 %; MONOCYTES ABSOLUTE 0.33 10/3/uL (0.21-1.20); NEUTROPHILS 78.9 %; NEUTROPHILS ABSOLUTE 3.85 10/3/uL (2.02-8.40); PLATELET COUNT 238 10/3/uL (150-400); RBC DISTRIBUTION WIDTH 15.6 % (12.0-16.0); RED CELL COUNT 3.01 10/6/uL (4.7-6.1); WHITE BLOOD CELLS 4.9 10/3/uL (4.5-10.5)
[2016-10-07 04:38] LABS: HEMATOCRIT 25.8 % (40.0-51.0); MANUAL DIFF NO %
[2016-10-07 05:01] LABS: BUN (BLOOD UREA NITROGEN) 23 MG/DL (6-23); CALCIUM, SERUM 9.3 MG/DL (8.5-10.4); CHLORIDE, SERUM 102 MMOL/L (96-112); CO2 (CARBON DIOXIDE) 35 MMOL/L (24-34); GFR AFRICAN AMERICAN 31 ML/MIN (>=60); GFR NON AFRICAN AMERICAN 27 ML/MIN (>=60); GLUCOSE, SERUM 96 MG/DL (60-99); PHOSPHORUS, SERUM 1.6 MG/DL (2.5-4.5); POTASSIUM, SERUM 3.7 MMOL/L (3.5-5.3); SODIUM, SERUM 142 MMOL/L (135-148)
[2016-10-07] MEDS ORDERED: SYN075 PO (16:26)
[2016-10-07] MEDS ORDERED: CARDIZEM LA180 MG PO (16:27)
[2016-10-07] MEDS ORDERED: ASAB (16:27)
[2016-10-07] MEDS ORDERED: ASAB PO (16:28)
[2016-10-07] MEDS ORDERED: ALBUTEROL0.083 % (17:11)
[2016-10-08 17:28] LABS: THYROGLOBULIN AUTO ANTIBODY <0.9 IU/mL (0.0-4.0); THYROID PEROXIDASE AUTO AB 0.5 IU/mL (0.0-9.0)
== END 2016-10-07 17:41 | disposition home health service (06) | DRG 853 ==
LOC: ER 23:53 → 1SO 09-30 01:03
PROVIDERS: Emergency Medicine; Internal Medicine; Internal Medicine Critical Care Medicine; Internal Medicine Hematology & Oncology; Physician Assistant Medical
PROC: 0W993ZX Drainage of Right Pleural Cavity, Percutaneous Approach, Diagnostic (ICD-10-PCS; 2016-10-01)
PROC: 0BBF8ZX Excision of Right Lower Lung Lobe, Via Natural or Artificial Opening Endoscopic, Diagnostic (ICD-10-PCS; principal; 2016-10-05 10:17)
PROC: 07B74ZX Excision of Thorax Lymphatic, Percutaneous Endoscopic Approach, Diagnostic (ICD-10-PCS; 2016-10-05 10:17)
PROC: 0B9F8ZX Drainage of Right Lower Lung Lobe, Via Natural or Artificial Opening Endoscopic, Diagnostic (ICD-10-PCS; 2016-10-05 10:17)
PROC: 0BJK8ZZ Inspection of Right Lung, Via Natural or Artificial Opening Endoscopic (ICD-10-PCS; 2016-10-05 10:17)
DX: A41.9 Sepsis, unspecified organism (principal); G93.41 Metabolic encephalopathy; G93.40 Encephalopathy, unspecified; J90 Pleural effusion, not elsewhere classified; J18.9 Pneumonia, unspecified organism; C78.01 Secondary malignant neoplasm of right lung; N17.9 Acute kidney failure, unspecified; C77.1 Secondary and unspecified malignant neoplasm of intrathoracic lymph nodes; J44.0 Chronic obstructive pulmonary disease with (acute) lower respiratory infection; N39.0 Urinary tract infection, site not specified; R65.20 Severe sepsis without septic shock; N18.3 Chronic kidney disease, stage 3 (moderate); I48.91 Unspecified atrial fibrillation; Z66 Do not resuscitate; E83.39 Other disorders of phosphorus metabolism; J44.9 Chronic obstructive pulmonary disease, unspecified; D63.1 Anemia in chronic kidney disease; I12.9 Hypertensive chronic kidney disease with stage 1 through stage 4 chronic kidney disease, or unspecified chronic kidney disease; E78.5 Hyperlipidemia, unspecified; E87.70 Fluid overload, unspecified; N40.1 Benign prostatic hyperplasia with lower urinary tract symptoms; M06.9 Rheumatoid arthritis, unspecified; E89.0 Postprocedural hypothyroidism; Z79.899 Other long term (current) drug therapy; Z87.891 Personal history of nicotine dependence; Z86.73 Personal history of transient ischemic attack (TIA), and cerebral infarction without residual deficits; Z85.850 Personal history of malignant neoplasm of thyroid
CPT/HCPCS: 70450; 71010; 71020; 71250; 74176; 74330; 76775; 80048; 80053; 80069; 81001; 82550; 82553; 82570; 82945; 83615; 83735; 83880; 83935; 84100; 84155; 84157; 84300; 84439; 84443; 84484; 85025; 85610; 85730; 86376; 86431; 86800; 87015; 87040; 87070; 87077; 87086; 87102; 87116; 87186; 87205; 88112; 88172; 88173; 88177; 88305; 88333; 88341; 88342; 89051; 93005; 93306; 94640; 94667; 94668; 94762; 96374; 97110-GP; 97116-GP; 97161-GP; 99285; A9270-GY; C1725; J0456; J1940; J2710